=== PATIENT | female | born 1960 | race Asian ===

== ENCOUNTER 2021-01-23 07:53 | Outpatient (REF) | payer OTHER, SELFPAY ==
--- NOTE | ~2021-01-23 | XR_ITS ---
EXAMINATION: XR CHEST CLINICAL INFORMATION: Screening for TB COMPARISON: None TECHNIQUE: 2 views of the chest were obtained. FINDINGS: No significant abnormality is noted involving the heart, lungs, mediastinum, bony thorax or soft tissues. XR/XR chest 2V IMPRESSION: Unremarkable examination.
== END 2021-01-23 07:54 | disposition home or self-care (01) ==
LOC: HO.XRAY 07:53
PROVIDERS: PCP Nurse Practitioner Primary Care; Visit Provider Nurse Practitioner Primary Care
DX: Z11.1 Encounter for screening for respiratory tuberculosis (principal)
CPT/HCPCS: 71046

== ENCOUNTER 2022-04-17 15:10 | Outpatient (REF) | payer MEDICAID, OTHER, SELFPAY ==
--- NOTE | ~2022-04-17 | MM_ITS ---
EXAMINATION: MM SCREENING DIGITAL BREAST TOMOSYNTHESIS, BILATERAL CLINICAL INFORMATION: Screening. Asymptomatic. The lifetime risk of breast cancer based on the Tyrer-Cuzick Model is 7%. COMPARISON: Mammography: 12/26/2015, 10/06/2012, 09/03/2011 TECHNIQUE: Digital breast tomosynthesis is performed in both the craniocaudal and mediolateral oblique views along with computer-aided detection (CAD). Synthesized 2D images are generated from the tomosynthesis. FINDINGS: The breasts are heterogeneously dense, which may obscure small masses (ACR BI-RADS breast composition Category c). Parenchymal pattern is similar to prior studies. There is no developing density or architectural abnormality. No abnormal calcifications. No interval mass. The axilla and skin contours are unremarkable. No significant changes. MM/MM tomosynthesis screening BI IMPRESSION: No mammographic evidence of malignancy. ASSESSMENT: BI-RADS 1: Negative RECOMMENDATION: Routine annual mammography screening. This patient's information was entered into a reminder system with a target due date for their next mammogram.
== END 2022-04-17 15:11 | disposition home or self-care (01) ==
LOC: HO.MAMMO 15:10
PROVIDERS: PCP Nurse Practitioner Primary Care; Visit Provider Nurse Practitioner Primary Care
DX: Z12.31 Encounter for screening mammogram for malignant neoplasm of breast (principal)
CPT/HCPCS: 77063; 77067

== ENCOUNTER 2023-06-25 12:47 | Outpatient (AMB) | payer OTHER, SELFPAY ==
--- NOTE | 2023-06-25 12:51 | MHC.OFFVIS ---
Intake Vital Signs 06/25/23 12:54 Height 5 ft 5 in Weight 153 lb BMI 25.5 BP 151/75 H Blood Pressure Location Lt brachial Position Sitting Pulse 72 Intake Visit Reasons: Colonoscopy Screening Intake Note: Patient new consult for 1st pre colonoscopy screening. Patient denies any GI issues. Public Health Aides Teacher Required: No Accompanied by: Son Allergies No Known Allergies [No Known Allergies*] Allergy (Verified 06/25/23 12:51) Medication List - Last Reconciled 06/25/23 by Mary Lopez PA-C amlodipine 10 mg PO DAILY aspirin 81 mg PO DAILY atorvastatin 80 mg PO BEDTIME insulin glargine (Lantus U-100 Insulin) 20 units subcut DAILY insulin lispro 14 units subcut BID losartan 50 mg PO DAILY metformin ER 500 mg PO BID HPI HPI Comments History of Present Illness Details A 62 y/o female referred for index screening colonoscopy. She had a change in metformin- she feels well Bowels are normal Appetite good Has no nausea, vomiting, hematemesis, hematochezia fever chills Her son is present interprets No family history of GI cancers PFSH Surgical History History of appendectomy Family History Mother Diabetes Father Stroke Social History Household Members: Family Alcohol intake: never Patient Tobacco Use Status: Never used Tobacco Use of substances other than those prescribed or required for medical reasons: No Review of Systems Const All systems reviewed & are unremarkable except as noted in HPI and below Card Denies chest pain and Denies dyspnea Resp Denies dyspnea GI Denies abdominal pain, Denies hematochezia, Denies change in stool character, Denies nausea and Denies vomiting Physical Exam Vital Signs: Last Vital Signs Pulse 72 06/25/23 12:54 BP 151/75 H 06/25/23 12:54 BMI result Body Mass Index 25.5 Const General: cooperative, healthy appearing, comfortable and no acute distress Orientation/consciousness: patient oriented x3 Limitations: language barrier Eyes Sclerae: sclerae normal Resp Effort & Inspection: normal respiratory effort and able to speak in complete sentences Auscultation: clear to auscultation bilaterally, no rales, no rhonchi and no wheezes Cardio Rate: regular rate Rhythm: regular rhythm Heart sounds: S1 normal heart sound present and S2 normal heart sound present GI Palpation (GI): Soft to palpation and nontender Auscultation: normal bowel sounds Skin General skin exam: no rashes or lesions noted Neuro General: patient oriented x3 Extrem General: Yes full ROM Psych Appearance: grossly normal and well kempt Mental Status: mental status grossly normal Speech and movement: Normal speech and movement present Affect: normal affect Attitude: cooperative Thought process: Normal thought process present Thought content: Normal thought content present Insight: Good insight present (Psych) Judgement: Good judgement present (Psych) Assessment & Plan Assessment & Plan (1) Encounter for screening colonoscopy: Comment: Index screening colonoscopy Discussed procedure rare risks, need for escort due to anesthesia Code(s): Z12.11 - Encounter for screening for malignant neoplasm of colon Plan Screening Colon- index MG split Omit metformin carrie before- 1/2 dose insulin morning of procedure no DM medications Orders: Orders Colonoscopy - GI Use Only Today Z12.11 - Encounter for screening for malignant neoplasm of colon Medications: New bisacodyl (Dulcolax (bisacodyl)) Day before procedure, prep day Take 4 tablets by mouth upon awakening followed by large glass of water 20 mg (4 x 5 mg) PO ONCE 4 tabs 0RF colonoscopy prep 1 day Z12.11 - Encounter for screening for malignant neoplasm of colon polyethylene glycol 3350 (Miralax) Take as directed by mouth the day before your procedure. 238 grams PO ONCE PRN 238 grams 0RF laxative effect 1 day Patient Instructions: Very pleasant 62-year-old female referred for index screening colonoscopy no GI or general complaints Index Screening Colonoscopy MG split Omit metformin carrie before- 1/2 dose insulin morning of procedure no DM medications Enourage to call questions or concerns Coding Level of Care Code Tele New Pt Level 3 (74547) Diagnoses Encounter for screening colonoscopy Z12.11
[2023-06-25 12:54] VITALS: BP 151/75; PULSE 72; BMI 25.5
== END 2023-06-25 14:19 | disposition home or self-care (01) ==
PROVIDERS: PCP Nurse Practitioner Primary Care; Visit Provider Physician Assistant
DX: Z01.818 Encounter for other preprocedural examination (principal); Z12.11 Encounter for screening for malignant neoplasm of colon
CPT/HCPCS: 99203

== ENCOUNTER → 2023-06-25 12:47 | Outpatient (BNVA) | payer MEDICAID, OTHER, SELFPAY | PROVIDERS: PCP Nurse Practitioner Primary Care; Visit Provider Physician Assistant ==

== ENCOUNTER 2023-10-27 08:49 | Outpatient (REF) | payer OTHER, SELFPAY ==
[2023-10-27 12:29] LABS: Anion Gap 14 (12-20); Blood Urea Nitrogen 15 mg/dL (9-16); Calcium 10.3 mg/dL (8.4-10.2); Carbon Dioxide 27 mmol/L (22-29); Chloride 103 mmol/L (96-108); Cholesterol 171 mg/dL (<200); Estimated Glomerular Filt Rate > 60; Glucose Random 151 mg/dL (60-115); HDL Cholesterol 45 mg/dL (>40); LDL Cholesterol Calculated 100 mg/dL (<100); Potassium 4.6 mmol/L (3.3-5.1); Sodium 139 mmol/L (135-145); Triglycerides 130 mg/dL (<150)
[2023-10-27 12:41] LABS: Creatinine Urine 64.16 mg/dL; Microalbum/Creatinine Ratio Ur 23.3 ug/mg cr (<30)
== END 2023-10-27 08:50 | disposition home or self-care (01) ==
LOC: HO.HHCL 08:49
PROVIDERS: Visit Provider Nurse Practitioner Primary Care
DX: E11.69 Type 2 diabetes mellitus with other specified complication (principal); Z79.4 Long term (current) use of insulin
CPT/HCPCS: 36415; 80048; 80061; 82043; 82570

== ENCOUNTER 2025-05-23 10:38 | Outpatient (REF) | payer OTHER, SELFPAY ==
[2025-05-23 11:41] LABS: Hemoglobin A1C 221.3807 umol/L; Total Hemoglobin (HGBA1C) 3256.7208 umol/L
[2025-05-23 12:19] LABS: Microalbum/Creatinine Ratio Ur 29.1 ug/mg cr (<30)
--- OUTSIDE RECORDS SUMMARY | 2025-05-23 12:50 | XMS_ITS | Encounter Summary ---
Author Organization [employer] Address [address] [place] [address] Care Team Providers Care Therapist Speech Name Role Phone Padma Farah Primary Care Provider [phone] Encounter Details Date Type Department Care Team ([facility] st Contact Info) Description 05/23/2025 Orders Only [facility] [address] [place], [place] [phone] Padma Farah ANP [address], [place] [phone] Social History Tobacco Use Types Packs/Day Years Used Date Smoking Tobacco: Never Smokeless Tobacco: Never Alcohol Use Standard Drinks/Week Comments Not Currently 0 (1 standard drink = 0.6 oz pur e alcohol) Depression Answer Date Recorded Patient Health Questionnaire-9 Score 0 02/03/2024 Patient Health Questionnaire-9 Score 0 02/03/2024 Last PHQ-9: Questionnaire Data Not on file 0 02/03/2024 Housing Stability Answer Date Recorded What is your housing situation today? I have ryan wiggins 02/03/[address] you li ve. Do you have problems with any of the following? None of the above 02/03/2024 Food Insecurity Answer Date Recorded Within the past 12 months, y ou worried that your food would run out before you got money to buy more: Never True 02/03/2024 Within the past 12 months,th e food you bought just didn't last and you didn't have enough money to get more: Never True Utilities Answer Date Recorded In the past 12 months, has t he electric, gas, oil or water company threatened to shut off services in your home? No 02/03/2024 Depression Answer Date Recorded Patient Health Questionnaire-2 Score 0 02/03/2024 Comments Unknown Sex and Gender Information Value Date Recorded Sex Assigned at Female 07/15/2022 10:20 AM EDT Legal Sex Female 10:20 AM EDT Gender Identity Female 07/15/2022 10:20 AM EDT Sexual Orientation Straight 07/15/2022 10 :20 AM EDT documented as of this encounter Plan of Treatment Upcoming Encounters Date Type Department Care Team (Late st Contact Info) Description 06/07/2025 9:45 AM EDT Office Visit [facility] [address] [place] [address] Padma Farah ANP [address] [place] [address] documented as of this encounter Visit Diagnoses Not on filedocumented in this encounter Additional Health Concerns Assessment Noted Time PHQ-9 Depression Total Score: 0 02/03/20 24 2:33 PM EDT documented as of this encounter Care Teams Therapist Speech Relationship Specialty Start Date End Date Padma Farah ANP [address] [place] [phone] PCP - General Family Medicine 09/29/20 documented as of this encounter
--- OUTSIDE RECORDS SUMMARY | 2025-05-23 12:50 | XMS_ITS | Clinical Summary ---
Author Organization [employer] Address [address] [place] [address] [address] [place] [address] Care Team Providers Care Art Gilder Name Role Phone Gagan Padma RAYGOZA Primary Care Provider [phone] Allergies Active Allergy Reactions Criticality Noted Date Comments Lisinopril Cough Medium 03/27/2009 Medications omega-3, EPA + DHA, (fish oil) 1000 MG capsule Take 1 capsule by mouth with breakfast and with evening meal. 022 Active glucose blood (FREESTYLE LITE) test strip Test blood sugars twice a day 022 Active TRUEplus Lancets 33G miscIndications:T ype 2 diabetes mellitus with other specified complication, with long-term current use of insulin ([facility]) TEST BLOOD SUGAR TWICE DAILY 100 each 11 022 Active Continuous Blood Gluc Foundation Director (FreeStyle Jay Jay 2 [place]) deviceIndications :Type 2 diabetes mellitus with hyperlipidemia (CMS/HCC) (CMS/[facility]) 1 each 5 (five) times a day. 1 each 023 Active Continuous Blood Gluc Sensor (FreeStyle Jay Jay 2 Sensor) miscIndications:T ype 2 diabetes mellitus with hyperlipidemia (CMS/HCC) (CMS/[facility]) 1 each every 14 (fourteen) days. 6 each 3 023 Active insulin pen needle (UltiCare Short Pen [place]) 31G X 8 mm misc USE DIRECTED FOUR TIMES DAILY 100 each 11 024 Active amLODIPine (Norvasc) 10 MG tablet TAKE 1 TABLET BY MOUTH ONCE DAILY 90 tablet 3 024 Active insulin lispro (HumaLOG) 100 UNIT/ML injectionIndicati ons:Diabetic peripheral neuropathy associated with type 2 diabetes mellitus (CMS/HCC) INJECT 14 UNITS SUBCUTANEOUSLY TWICE DAILY WITH BREAKFAST AND WITH DINNER 15 mL 3 025 Active metFORMIN XR (Glucophage-XR) 500 MG 24 hr tabletIndications :Type 2 diabetes mellitus with hyperlipidemia (CMS/HCC) (CMS/HCC) TAKE 1 TABLET BY MOUTH TWICE DAILY WITH FOOD. DO NOT BREAK, CRUSH, DISSOLVE OR CHEW 180 tablet 025 Active Lantus SoloStar 100 UNIT/ML penIndications:Di abetic peripheral neuropathy associated with type 2 diabetes mellitus (CMS/HCC) INJECT 20 UNITS SUBCUTANEOUSLY EVERY DAY IN THE EVENING 15 mL 1 025 Active Aspirin Low Dose 81 MG EC tablet TAKE 1 TABLET BY MOUTH EVERY DAY 90 tablet 025 Active atorvastatin (Lipitor) 80 MG tablet TAKE 1 TABLET BY MOUTH EVERY DAY 90 tablet 025 Active losartan (Cozaar) 50 MG tablet TAKE 1 TABLET BY MOUTH EVERY DAY 90 tablet 025 Active atorvastatin (Lipitor) 80 MG tablet TAKE 1 TABLET BY MOUTH EVERY DAY 90 tablet 1 025 2024 Discontinued aspirin (Aspirin Low Dose) 81 MG EC tablet TAKE 1 TABLET BY MOUTH EVERY DAY 90 tablet 1 025 2024 Discontinued losartan (Cozaar) 50 MG tablet TAKE 1 TABLET BY MOUTH EVERY DAY 90 tablet 1 025 2024 Discontinued Active Problems Problem Noted Date Diagnosed Date Chronic gastritis 09/03/2022 Type 2 diabetes mellitus 04/14/2019 Premature atrial contraction 02/09/2019 Palpitations 01/04/2019 Diabetic peripheral neuropat hy associated with type 2 diabetes mellitus 05/07/2018 Dyslipidemia 08/23/2015 Hypertensive disorder 02/02/2015 Retroperitoneal lymphadenopathy 01/22/2015 Difficulty sleeping 12/06/2014 Encounters Date Type Department Care Team Description 05/23/2025 Results Follow-Up [facility] [address] [place] [address] Padma Farah ANP Hemoglobin A1c 05/23/2025 Orders Only [facility] [address] [place] [address] Padma Farah ANP 05/16/2025 Refill [facility] [address] [place] [address] Padma Farah ANP 04/22/2025 Telephone [facility] [address] [place] [address] Padma Farah ANP Med Refill 04/22/2025 Orders Only [facility] [address] [place] [address] Padma Farah ANP Diabetic peripheral neuropathy associated with type 2 diabetes mellitus ([facility]/HCC) (Primary Dx) 04/22/2025 Refill [facility] [address] [facility] [place] [facility] [place] [address] Padma Farah ANP Diabetic peripheral neuropathy associated with type 2 diabetes mellitus ([facility]/HCC) 02/22/2025 Refill [facility] [address] [facility] [place] [address] Padma Farah ANP Type 2 diabetes mellitus with hyperlipidemia ([facility]/HCC) ([facility]) from Last 3 Months Immunizations Immunization Administration Dates Next Due Hep B, adult 12/13/2015,08/23/2015,05/29/2015 Influenza injectable quadriv alent IIV4 with preservative 09/05/2017,08/15/2016,05/29/2015 Influenza injectable quadriv alent preservative free 07/03/2022,07/06/2020,08/03/2019,09/06 Influenza, IIV3, injectable 07/23/2011 Influenza, Split (incl. pasquale fied surface antigen) 06/29/2012 Pfizer Covid-19 Vaccine 12+ 08/31/2021,,12/12/2020 Pneumococcal Conjugate PCV 20 07/17/2022 Pneumococcal Polysaccharide PPSV23 11/27/2009 TD (adult), 2 Lf tetanus tox oid, preservative free, adsorbed 08/28/2009 Tdap 05/15/2022 Zoster, Recombinant 07/17/2022,05/15/2022 Family History Medical History Relation Name Comments Stroke Father Diabetes Mother Stroke Mother Relation Name Status Comments Father Mother Social History Tobacco Use Types Packs/Day Years Used Date Smoking Tobacco: Never Smokeless Tobacco: Never Tobacco Cessation:Counseling Given: Not Answered Alcohol Use Standard Drinks/Week Comments Not Currently [...] Orientation Straight 07/15/2022 10 :20 AM EDT Last Filed Vital Signs Vital Sign Reading Time Taken Comments Blood Pressure 120/74 02/03/2024 3:06 PM EDT Pulse 70 02/03/2024 2:29 PM EDT Temperature 36.2 C (97.2 F) 02/03/2024 2:29 PM EDT Respiratory Rate 20 02/03/2024 2:29 PM EDT Oxygen Saturation 95% 02/03/2024 2:29 PM EDT Inhaled Oxygen Concentration - - Weight 69.9 kg (154 lb) 02/03/2024 2:29 PM EDT Height 157.5 cm (5' 2 ) 02/03/2024 2:29 PM EDT Body Mass Index 28.17 02/03/2024 2:29 PM EDT Plan of Treatment Upcoming Encounters Date Type Department Care Team (Late st Contact Info) Description 06/07/2025 9:45 AM EDT Office Visit [facility] [address] [place] [address] Padma Farah ANP [address] [place], [place] [phone] Health Maintenance Due Date Last Done Comments CT Colonography 1960 Colonoscopy 1960 Colorectal Cancer Screening 1960 FIT DNA/Cologuard 1960 FIT 1960 FOBT 1960 HIV Screening 1960 Sigmoidoscopy 1960 Disability Screening 1960 Diabetes: Foot Exam 1970 Eye Exam 1970 Alcohol/Substance Use Screening 1972 Hepatitis C Screening 1978 RSV Patients and Patients Aged 60 years or older (1 - Risk 60-74 years 1-dose series) 2020 Mammogram 04/17/2024 04/17/2022 Lipid Panel 10/27/2024 10/27/2023, 02/15/2021 Depression Screening 02/02/2025 02/03/2024, 02/03/20 24 SDOH Screening 02/02/2025 02/03/2024 Tobacco Screening 02/02/2025 02/03/2024 COVID-19 Vaccine ( season) 2025 08/31/2021, 01/02/2021, 12/12/2020 Influenza Vaccine (#1) 2025 , 07/03/2022, 07/06/2020, Additional history exists Diabetes: Hemoglobin A1C 08/22/2025 025, 02/03/2024, 03/24/2023, Additional history exists Cervical Cancer Screening 04/26/2026 HPV/Cotest 04/26/2026 04/26/2021 Pap Smear 04/26/2026 04/26/2021 Diabetes: Urine Protein Screening 05/23/2026 05/23/2025, 10/27/2023, 02/15/2021 DTaP/Tdap/Td Vaccines (2 - Td or Tdap) 05/15/2032 05/15/2022, 08/28/2009 Hepatitis B Vaccines Completed 12/13/2015, 08/23/2015, 05/29/2015 Pneumococcal Vaccine: 50+ Years Completed 07/17/2022, 11/27/2009 Zoster Vaccines Completed 07/17/2022, 05/15/2022 HIB Vaccines Aged Out No longer eligi ble based on patient's age to complete this topic HPV Vaccines Aged Out No longer eligi ble based on patient's age to complete this topic Hepatitis A Vaccines Aged Out No long er eligible based on patient's age to complete this topic IPV Vaccines Aged Out No longer eligi ble based on patient's age to complete this topic Meningococcal B Vaccine Aged Out No l onger eligible based on patient's age to complete this topic Meningococcal Vaccine Aged Out No maya shiva eligible based on patient's age to complete this topic RSV under 20 months Aged Out No longe r eligible based on patient's age to complete this topic Rotavirus Vaccines Aged Out No longer eligible based on patient's age to complete this topic Procedures Procedure Name Priority Date/Time Associated Diagnosis Comments ALBUMIN, RANDOM URINE W/CREATININE Routine 05/23/2025 10:48 AM EDT Diabetic peripheral neuropathy associated with type 2 diabetes mellitus (CMS/HCC) HEMOGLOBIN A1C Routine 05/23/2025 10:48 AM EDT Diabetic peripheral neuropathy associated with type 2 diabetes mellitus (CMS/HCC) LIPID PANEL, STANDARD Routine 10/27/2023 8:53 AM EST MAMMOGRAM GENERIC Routine 04/17/2022 3:2 1 PM EDT HPV MRNA E6/E7 Routine 04/26/2021 11:20 AM EDT THINPREP PAP Routine 04/26/2021 11:20 AM EDT from Last 3 Months or Most Recently Relevant to Health Maintenance Results * (ABNORMAL) Albumin, Random Urine W/Creatinine (05/23/2025 10:48 AM EDT) Creatinine, Urine 164.81 mg/dL [facility] Microalbumin Urine 48.0 mg/L H [facility] Microalbum Creatinine Ratio Ur 29.1(H) <30 ug/mg cr [facility] Comment:Albumin/Creatinine R atio Reference Ranges: Normal: < 30 ug/mg creatinine Microalbuminuria: 30 - 300 ug/mg creatinineClinical Albuminuria: > 300 ug/mg creatinine Urine 05/23/2025 10:4 8 AM EDT 05/23/2025 11:38 AM EDT Padma Farah ANP LAB URINE ORDERABLES Final Resul t Performing Organization Address [facility] de Phone Number [facility] [address] [place] [phone] * (ABNORMAL) Hemoglobin A1c (05/23/2025 10:48 AM EDT) Hemoglobin A1c 8.4(H) <6.0 % [facility] Comment:Hemoglobin A1C Refer ence Range Adults: 4.8 - 6.0 % Non diabetic: < 6.0 % Goal: < 7.0 %Additional Action Suggested: > 8.0 %Note: Hemoglobin A1c results are invalid for patients with abnormal amounts of HbF. Blood transfusions may impact the HbA1c concentration in the patient sample. Estimated Average Glucose 194 mg/dL [facility] Comment:eAG = Estimated ave rage glucose which is %A1C expressed asaverage glucose, using the formula of the P8O-HgyqjelKqswxut Glucose study (ADAG), Diabetes Care, Vol.31,#8,Apr. 2007 Blood Venous blood specimen / Unknown 05/23/2025 10:48 AM EDT 05/23/2025 11:21 AM EDT us Padma Farah ANP LAB BLOOD ORDERABLES Final Resul t Performing Organization Address [facility] Co de Phone Number [facility] [address] [place] [phone] * (ABNORMAL) Lipid Panel, Standard (10/27/2023 8:53 AM EST) Triglycerides 130 <150 mg/dL [facility] Comment:Desirable Triglyceri de: less than 150 mg/dLBorderline High Triglyceride 150-199 mg/dLHigh Triglyceride: 200-499 mg/dLVery High Triglyceride: greater than or equal to 5OO mg/dL Cholesterol 171 <200 mg/dL [facility] Comment:Desirable Cholestero l: less than 200 mg/dLBorderline High Cholesterol: 200-239 mg/dLHigh Cholesterol: greater than 239 mg/dL LDL Cholesterol Calculated 100(H) <100 mg/dL [facility] Comment:Desirable LDL: less than 100 mg/dLNear Optimal/Above Optimal LDL: 110- 129 mg/dLBorderline High LDL: 130-159 mg/dLHigh LDL: 160-189 mg/dLVery High LDL: greater than or equal to 190 mg/dL HDL Cholesterol 45 >40 mg/dL [facility] Comment:Desirable HDL: great er than 40 mg/dL Note: This HDL assay may give artificially low results in patients with liver disease. 10/27/2023 8:53 AM EST 10/27/2023 11:34 AM EST us Padma Farah ANP LAB BLOOD ORDERABLES Final Resul t Performing Organization Address City/State/[facility] Co de Phone Number [facility] [address] [place] [phone] * Mammography Report 1 (04/17/2022 3:21 PM EDT) Anatomical Region Laterality Modality Breast Bilateral Mammography 04/17/2022 3:21 PM EDT Narrative 04/18/2022 4:32 PM EDT Refer to the Notes tab for result details [facility] Procedure: Mammography Report 1 Procedure Note Provider, MD Wade - 12/08/2022 Refer to the Notes tab for result details [facility] Procedure: Mammography Report 1 us Padma Farah ANP IMG BI PROCEDURES Final Result * THINPREP PAP (04/26/2021 11:20 AM EDT) Clinical Information: None given [facility] COMMENT SEE COMMENT [facility] Comment: EXPLANATORY NOTE: The Pap is a screening test for cervical cancer. It is not a diagnostic test and is subject to false negative and false positive results. It is most reliable when a satisfactory sample, regularly obtained, is submitted with relevant clinical findings and history, and when the Pap result is evaluated along with historic and current clinical information. Screener Operator : SEE COMMENT [facility] Comment: GSG, CT(ASCP) CT screening location: [place] [address] Interpretation/R esult: Negative for intraepithelial lesion or malignancy. [facility] LMP: NONE [facility]IVEN [facility] Prev. BX: NONE [facility]IVEN [facility] Prev. PAP: NONE GIVEN [facility] SOURCE: None given [facility] Statement Of Adequacy: SEE COMMENT [facility] Comment: Satisfactory for evaluation. Endocervical/transformation zone component present. 04/26/2021 11:2 0 AM EDT Mindy SALGADO LAB PATHOLOGY ORDERABLES Final Result Performing Organization Address [facility] de Phone Number [facility]ly [facility] [address] * HPV mRNA E6/E7 (04/26/2021 11:20 AM EDT) HPV nRNA E6/E7 Not Detected Not Detected [facility] Comment: Methodology: Beam Saw Operator-Mediated Amplification This assay detects E6/E7 viral messenger RNA (mRNA) from 14 high-risk HPV types (16,18,31,33,35,39,45,51,52,56,58,59,66,68). The analytical performance characteristics of this assay have been determined by [employer]. The modifications have not been cleared or approved by the FDA. This assay has been validated pursuant to the CLIA regulations and is used for clinical purposes. For additional information, please refer to http://education.[employer]/faq/WMP028g1 (This link if provided for information/ educational purposes only.) 04/26/2021 11:2 0 AM EDT Mindy SALGADO LAB BLOOD ORDERABLES Anjana l Result Performing Organization Address [facility] Co de Phone Number [facility] [address] from Last 3 Months or Most Recently Relevant to Health Maintenance Insurance [place], [place] HSN PARTIAL [facility] Care Teams Art Gilder Relationship Specialty Start Date End Date Padma Farah ANP [address] [place] [address] PCP - General Family Medicine 09/29/20
--- OUTSIDE RECORDS SUMMARY | 2025-05-23 12:50 | XMS_ITS | Encounter Summary ---
Author Organization [employer] Address [address] [facility] [address] [place] [address] Care Team Providers Care Head Of Transport Logistics Name Role Phone Padma Farah Primary Care Provider [phone] Encounter Details Date Type Department Care Team ([facility] Contact Info) Description 05/23/2025 Results Follow-Up [facility] [address] [place] [address] Padma Farah ANP [address] [place] [address] Hemoglobin A1c Social History Tobacco Use Types Packs/Day Years [...] AM EDT documented as of this encounter Miscellaneous Notes * Result Encounter Note - JARET Escudero - 05/23/2025 11:57 AM EDT Hi - please let Mrs. Agrawal know that A1c remains above goal, if she agrees I would like her to see our clinical pharmacist for assistance getting this down. Thanks. documented in this encounter Plan of Treatment Upcoming Encounters Date Type Department Care Team (Late st Contact Info) Description 06/07/2025 9:45 AM EDT Office Visit [facility] [address] [place] [address] Padma Farah ANP [address] [place] [address] documented as of this encounter Visit Diagnoses Not on filedocumented in this encounter Additional Health Concerns Assessment Noted Time PHQ-9 Depression Total Score: 0 02/03/20 24 2:33 PM EDT documented as of this encounter Care Teams Head Of Transport Logistics Relationship Specialty Start Date End Date Padma Farah ANP [address] [place] [address] PCP - General Family Medicine 09/29/20 documented as of this encounter
[2025-05-23 14:30] LABS: Anion Gap 14 (12-20); Blood Urea Nitrogen 16 mg/dL (9-16); Calcium 9.5 mg/dL (8.4-10.2); Carbon Dioxide 26 mmol/L (22-29); Chloride 105 mmol/L (96-108); Estimated Glomerular Filt Rate > 60; Potassium 4.0 mmol/L (3.3-5.1); Sodium 141 mmol/L (135-145)
== END 2025-05-23 10:39 | disposition home or self-care (01) ==
LOC: HO.HHCL 10:38
PROVIDERS: PCP Nurse Practitioner Primary Care; Visit Provider Nurse Practitioner Primary Care
DX: E11.42 Type 2 diabetes mellitus with diabetic polyneuropathy (principal)
CPT/HCPCS: 36415; 80048; 82043; 82570; 83036

== ENCOUNTER 2025-08-15 08:24 | Outpatient (REF) | payer OTHER, SELFPAY ==
--- OUTSIDE RECORDS SUMMARY | 2025-08-15 08:39 | XMS_ITS | Encounter Summary ---
Author Organization [employer] Address [address] [facility] [address] [place] [address] Care Team Providers Care Compacting Machine Operator/Tender Name Role Phone Padma Farah Primary Care Provider [phone] Encounter Details Date Type Department Care Team ([facility] st Contact Info) Description 08/08/2025 Orders Only [facility] [address] [place] [address] Padma Farah ANP [address] [place] [address] Social History Tobacco Use Types Packs/Day Years Used Date Smoking Tobacco: Never Smokeless Tobacco: Never Alcohol Use Standard Drinks/Week Comments Not Currently 0 (1 standard drink = 0.6 oz pur e alcohol) Depression Answer Date Recorded Patient Health Questionnaire-9 Score 3 06/07/2025 Patient Health Questionnaire-9 Score 3 06/07/2025 Last PHQ-9: Questionnaire Data Not on file 0 06/07/2025 Housing Stability Answer Date Recorded What is your housing situation today? I have ryan wiggins 06/07/[address] you li ve. Do you have problems with any of the following? None of the above 06/07/2025 Food Insecurity Answer Date Recorded Within the past 12 months, y ou worried that your food would run out before you got money to buy more: Never True 06/07/2025 Within the past 12 months,th e food you bought just didn't last and you didn't have enough money to get more: Never True Transportation Answer Date Recorded In the past 12 months, has l ack of transportation kept you from medical appts, meetings, work or from getting things needed for daily living? No 06/07/2025 Utilities Answer Date Recorded In the past 12 months, has t he electric, gas, oil or water company threatened to shut off services in your home? No 06/07/2025 Depression Answer Date Recorded Patient Health Questionnaire-2 Score 1 06/07/2025 Internet Access Answer Date Recorded Internet Access Q1 Yes 06/07/2025 Internet Access Q2 Not on file 06/07/2025 Comments Unknown Sex and Gender Information Value Date Recorded Sex Assigned at Female 07/15/2022 10:20 AM EDT Legal Sex Female 10:20 AM EDT Gender Identity Female 07/15/2022 10:20 AM EDT Sexual Orientation Straight 07/15/2022 10 :20 AM EDT documented as of this encounter Plan of Treatment Upcoming Encounters Date Type Department Care Team (Late st Contact Info) Description 09/01/2025 9:00 AM EST Office Visit [facility] [address] [place] [phone] Padma Farah ANP [address] [place] [address] documented as of this encounter Goals Goal Patient Goal Type Associated Problems Recent Progress Patient-Stated? Author Help patients manage their type 2 diabetes Care Plan Help patients manage their type 2 diabetes No Padma Farah ANP Weekly blood pressure task Care Plan Weekly blood pressure task No Padma Farah ANP Help patients manage their type 2 diabetes Care Plan Help patients manage their type 2 diabetes No Padma Farah ANP Patient has chronic kidney disease Care Plan Patient has chronic kidney disease No Padma Farah ANP Help patients manage their type 2 diabetes Care Plan Help patients manage their type 2 diabetes No Padma Farah ANP Patient has diabetic neuropathy Care Plan Patient has diabetic neuropathy No Padma Farah ANP Weekly blood pressure task Care Plan Weekly blood pressure task No Padma Farah ANP Weekly blood pressure task Care Plan Weekly blood pressure task No Padma Farah ANP Patient has chronic kidney disease Care Plan Patient has chronic kidney disease No Padma Farah ANP Patient has chronic kidney disease Care Plan Patient has chronic kidney disease No Padma Farah ANP Patient has diabetic neuropathy Care Plan Patient has diabetic neuropathy No Padma Farah ANP Patient has diabetic neuropathy Care Plan Patient has diabetic neuropathy No Padma Farah ANP documented as of this encounter Visit Diagnoses Not on filedocumented in this encounter Additional Health Concerns Active Problems Noted Date Diagnosed Date Help patients manage their type 2 diabetes 08/08 Weekly blood pressure task 08/08/2025 Help patients manage their type 2 diabetes 08/08 Patient has chronic kidney disease 08/08/2025 Help patients manage their type 2 diabetes 08/08 Patient has diabetic neuropathy 08/08/2025 Weekly blood pressure task 08/08/2025 Weekly blood pressure task 08/08/2025 Patient has chronic kidney disease 08/08/2025 Patient has chronic kidney disease 08/08/2025 Patient has diabetic neuropathy 08/08/2025 Patient has diabetic neuropathy 08/08/2025 Assessment Noted Time PHQ-9 Depression Total Score: 3 06/07/20 25 9:57 AM EDT documented as of this encounter Care Teams Compacting Machine Operator/Tender Relationship Specialty Start Date End Date Padma Farah ANP [address] [place] [id number] PCP - General Family Medicine 09/29/20 documented as of this encounter
--- OUTSIDE RECORDS SUMMARY | 2025-08-15 08:39 | XMS_ITS | Encounter Summary ---
Author Organization [employer] Address [address] [facility] 7[address] [place] [address] Care Team Providers Care Technical Illustrator Name Role Phone Padma Farah Primary Care Provider [phone] Reason for Visit * Reason Comments Med Refill Encounter Details Date Type Department Care Team ([facility] st Contact Info) Description 06/13/2025 Refill [facility] [address] [place], [place] [phone] Belia Vazquez MD [address] [place], [place] [phone] Type 2 diabetes mellitus with hyperlipidemia (CMS/HCC) ([facility]/HCC) Social History Tobacco Use Types Packs/Day Years [...] Description 09/01/2025 9:00 AM EST Office Visit [facility] [address] [place] [address] Padma Farah ANP [address] [place] [address] documented as of this encounter Visit Diagnoses Diagnosis Type 2 diabetes mellitus with hyperlipidemia (HCC) documented in this encounter Additional Health Concerns Assessment Noted Time PHQ-9 Depression Total Score: 3 06/07/20 25 9:57 AM EDT documented as of this encounter Care Teams Technical Illustrator Relationship Specialty Start Date End Date Padma Farah ANP [address] [place] [address] PCP - General Family Medicine 09/29/20 documented as of this encounter
--- OUTSIDE RECORDS SUMMARY | 2025-08-15 08:39 | XMS_ITS | Encounter Summary ---
Author Organization [employer] Address [address] [facility] [address] [place] [address] Care Team Providers Care Telemetry Monitor Name Role Phone Padma Farah Primary Care Provider [phone] Encounter Details Date Type Department Care Team ([facility] st Contact Info) Description 05/23/2025 Orders Only [facility] [address] [place] [address] Padma Farah ANP [address] [place] [address] Social History Tobacco Use Types Packs/Day Years [...] Description 09/01/2025 9:00 AM EST Office Visit [facility] [address] [place] [address] Padma Farah ANP [address] [place] [address] documented as of this encounter Visit Diagnoses Not on filedocumented in this encounter Additional Health Concerns Assessment Noted Time PHQ-9 Depression Total Score: 0 02/03/20 24 2:33 PM EDT documented as of this encounter Care Teams Telemetry Monitor Relationship Specialty Start Date End Date Padma Farah ANP [address] [place] [address] PCP - General Family Medicine 09/29/20 documented as of this encounter
--- OUTSIDE RECORDS SUMMARY | 2025-08-15 08:39 | XMS_ITS | Clinical Summary ---
Author Organization [email or web address] Address [address] [place] [address] Care Team Providers Care Foreign Language Interpreter Name Role Phone Padma Farah Primary Care Provider [phone] Allergies Active Allergy Reactions Criticality Noted Date Comments Lisinopril Cough Medium 03/27/2009 Medications omega-3, EPA + DHA, (fish oil) 1000 MG capsule Take 1 capsule by mouth with breakfast and with evening meal. 06/12/20 22 Active glucose blood (FREESTYLE LITE) test strip Test blood sugars twice a day 03/14/20 22 Active TRUEplus Lancets 33G miscIndications:Ty pe 2 diabetes mellitus with other specified complication, with long-term current use of insulin (HCC) TEST BLOOD SUGAR TWICE DAILY 100 each 11 09/04/20 22 Active Lantus SoloStar 100 UNIT/ML penIndications:Galilea betic peripheral neuropathy associated with type 2 diabetes mellitus (HCC) INJECT 20 UNITS SUBCUTANEOUSLY EVERY DAY IN THE EVENING 15 mL 1 04/22/20 25 Active Aspirin Low Dose 81 MG EC tablet TAKE 1 TABLET BY MOUTH EVERY DAY 90 tablet 05/17/20 25 Active atorvastatin (Lipitor) 80 MG tablet TAKE 1 TABLET BY MOUTH EVERY DAY 90 tablet 05/17/20 25 Active losartan (Cozaar) 50 MG tablet TAKE 1 TABLET BY MOUTH EVERY DAY 90 tablet 05/17/20 25 Active metFORMIN XR (Glucophage-XR) 500 MG 24 hr tabletIndications: Type 2 diabetes mellitus with hyperlipidemia (HCC) TAKE 1 TABLET BY MOUTH TWICE DAILY WITH FOOD DO NOT BREAK, CRUSH, DISSOLVE OR CHEW 180 tablet 3 06/07/20 25 Active insulin lispro (HumaLOG) 100 UNIT/ML injectionIndicatio ns:Diabetic peripheral neuropathy associated with type 2 diabetes mellitus (HCC) INJECT 18 UNITS SUBCUTANEOUSLY TWICE DAILY WITH BREAKFAST AND WITH DINNER 15 mL 3 06/07/20 Active ezetimibe (Zetia) 10 MG tabletIndications: Dyslipidemia Take 1 tablet (10 mg) by mouth Once per day. 90 tablet 1 06/07/20 Active Continuous Glucose Orthotic/Prosthetic Practitioner (Dexcom G7 Orthotic/Prosthetic Practitioner) deviceIndications: Diabetic peripheral neuropathy associated with type 2 diabetes mellitus (HCC),Type 2 diabetes mellitus with hyperlipidemia (HCC) 1 each Once per day. 1 each 06/07/20 Active insulin pen needle (Easy Touch Pen [place]) 31G X 8 mm misc USE DIRECTED FOUR TIMES DAILY 100 each 11 06/14/20 Active amLODIPine (Norvasc) 10 MG tablet TAKE 1 TABLET BY MOUTH EVERY DAY 90 tablet 3 06/14/20 Active Active Problems Problem Noted Date Diagnosed Date Atherosclerosis of arteries 06/07/2025 Overview (06/07/2025): 03/02/25 Echo: EF 65.8%, no wall motion abn, diastolic dysfunction grade I, mild concentric LVH, sclerocalcified AV, trivial MR/KY/TR Carotid US: R: 3x13mm mixed plaques at R bulb to pICA. approx 40% stenosis r bulb, 24% stenosis R pICA. Normal spectral waveform L: 2x15mm mixed plaques at L bulb to pICA, 2.5mm calcified plaque at L pECA, approx 29% stenosis at L bulb,, approx 28% stenosis at L pICA. Normal spectral waveform On ASA, max statin, added Zetia 06/07/25 Vaginal atrophy 06/07/2025 Overview (06/07/2025): on pelvic 03/02/25, pt denies sx, reviewed if any dryness, itching, burning, abn discharge, let us know Lung nodule seen on imaging study 06/07/2025 Overview (06/07/2025): never smoker, subpleural nodule KIMBERLEY 0.4cm, probably benign 03/02/25 ([place]) Polyp of transverse colon 06/07/2025 Overview (06/07/2025): c-scope [place] 03/02/25, referred to GI 06/07/25 Polyp of ascending colon 06/07/2025 Overview (06/07/2025): c-scope [place] 03/02/25, referred to GI 06/07/25 Osteopenia 06/07/2025 Overview (06/07/2025): optimize dietary Ca and Vit D intake, add PTH and Vit D to labs Mild concentric left ventricular hypertrophy (LV H) 06/07/2025 Overview (06/07/2025): on echo 03/02/25 referraed to cards 06/07/25 Thyroid nodule greater than or equal to 1.5 cm in diameter incidentally noted on imaging study 06/07/2025 Overview (06/07/2025): cystic nodule 20.8mm on outside thyroid US done for screening ([facility] in [facility]), colloidal cysts < 5.4 mm, 3.6mm isoechoic nodule R lobe; rec repeat 6 mo Chronic gastritis 09/03/2022 Overview (06/07/2025): Atrophic gastritis on EGD 03/02/25 - referred to GI Consider PPI if not added at GI visit Premature atrial contraction 02/09/2019 Palpitations 01/04/2019 Diabetic peripheral neuropat hy associated with type 2 diabetes mellitus 05/07/2018 Type 2 diabetes mellitus with hyperlipidemia 05/2015 Hypertensive disorder 02/02/2015 Retroperitoneal lymphadenopathy 01/22/2015 Difficulty sleeping 12/06/2014 Encounters Date Type Department Care Team Description 08/08/2025 Orders Only [facility] [address] [facility] [facility] [address] [place] [phone] Padma Farah ANP 06/15/2025 Orders Only [facility] [address] [place] [address] Yasmani Peña MD Type 2 diabetes mellitus with hyperlipidemia (HCC) (Primary Dx) 06/13/2025 Refill [facility] [address] [place], [place] [phone] Belia Vazquez MD Type 2 diabetes mellitus with hyperlipidemia (CMS/HCC) (CMS/HCC) 06/13/[address] [address] Padma Farah ANP 06/08/[address] [address] Padma Farah ANP imaging orders 06/07/2025 9:45 AM EDT Office Visit [address] [address] Padma Farah ANP Diabetic peripheral neuropathy associated with type 2 diabetes mellitus (CMS/HCC) (Primary Dx); Dyslipidemia; Type 2 diabetes mellitus with hyperlipidemia (CMS/HCC) (CMS/HCC); Osteopenia, unspecified location; Polyp of transverse colon, unspecified type; Polyp of ascending colon, unspecified type; Lung nodule seen on imaging study; Encounter for immunization; Thyroid nodule greater than or equal to 1.5 cm in diameter incidentally noted on imaging study; Mild concentric left ventricular hypertrophy (LVH); Calcification of aortic valve; Atherosclerosis of arteries; Atrophic gastritis without hemorrhage; Vaginal atrophy; Dizziness; Chronic gastritis without bleeding, unspecified gastritis type 06/07/2025 Results Follow-Up [address] [address] Padma Farah ANP BD DEXA Axial 06/07/[address] [address] Nasra Handley, Janneth 06/07/2025 Travel 06/06/2025 Travel 06/06/[address] [address] Padma Farah ANP chart prep 05/23/2025 Results Follow-Up [address] [address] Padma Farah ANP Hemoglobin A1c, Albumin, Random Urine W/Creatinine 05/23/2025 Orders Only [address] [address] Padma Farah ANP 05/16/[address] [address] Padma Farah ANP from Last 3 Months Immunizations Immunization Administration Dates Next Due Hep B, adult 12/13/2015,08/23/2015,05/29/2015 Influenza injectable quadriv alent IIV4 with preservative 09/05/2017,08/15/2016,05/29/2015 Influenza injectable quadriv alent preservative free 07/03/2022,07/06/2020,08/03/2019,09/06 Influenza, IIV3, injectable 07/23/2011 Influenza, Split (incl. pasquale fied surface antigen) 06/29/2012 Influenza, seasonal, injecta ble, preservative free 06/07/2025,07/08/2024 Pfizer Covid-19 Vaccine 12+ 08/31/2021,,12/12/2020 Pneumococcal Conjugate [...] Never Smokeless Tobacco: Never Tobacco Cessation:Counseling Given: No Alcohol Use Standard Drinks/Week Comments Not Currently [...] Sign Reading Time Taken Comments Blood Pressure 120/78 06/07/2025 9:55 AM EDT Pulse 76 06/07/2025 9:55 AM EDT Temperature 36.1 C (97 F) 06/07/2025 9:55 AM EDT Respiratory Rate 20 06/07/2025 9:55 AM EDT Oxygen Saturation 95% 02/03/2024 2:29 PM EDT Inhaled Oxygen Concentration - - Weight 68.5 kg (151 lb) 06/07/2025 9:55 AM EDT Height 157.5 cm (5' 2 ) 06/07/2025 9:55 AM EDT Body Mass Index 27.62 06/07/2025 9:55 AM EDT Plan of Treatment Upcoming Encounters Date Type Department Care Team (Late st Contact Info) Description 09/01/2025 9:00 AM EST Office Visit [facility] [address] [place] [address] Padma Farah ANP [address] [place] [address] Health Maintenance Due Date Last Done Comments CT Colonography 1960 FIT DNA/Cologuard 1960 FIT 1960 FOBT 1960 HIV Screening 1960 Sigmoidoscopy 1960 Diabetes: Foot Exam 1970 RSV Patients and Patients Aged 60 years or older (1 - Risk 50-74 years 1-dose series) 2010 COVID-19 Vaccine ( season) 2025 08/31/2021, 01/02/2021, 12/12/2020 Diabetes: Hemoglobin A1C 08/22/2025 025, 02/03/2024, 03/24/2023, Additional history exists Lipid Panel 03/02/2026 03/02/2025, 10/16, 02/15/2021 Diabetes: Urine Protein Screening 05/23/2026 05/23/2025, 10/27/2023, 02/15/2021 Alcohol/Substance Use Screening 06/07/2026 06/07/2025 Depression Screening 06/07/2026 06/07/2025, 06/07/20 25 Disability Screening 06/07/2026 06/07/2025 SDOH Screening 06/07/2026 06/07/2025 Tobacco Screening 06/07/2026 06/07/2025 Eye Exam 03/02/2027 03/02/2025 Mammogram 03/02/2027 03/02/2025, 04/17/2022 Cervical Cancer Screening 03/02/2030 HPV/Cotest 03/02/2030 03/02/2025, 04/26/2021 Pap Smear 03/02/2030 03/02/2025, 04/26/2021 DTaP/Tdap/Td Vaccines (2 - Td or Tdap) 05/15/2032 05/15/2022, 08/28/2009 Colonoscopy 03/02/2035 03/02/2025 Colorectal Cancer Screening 03/02/2035 Hepatitis B Vaccines Completed 12/13/2015, 08/23/2015, 05/29/2015 Pneumococcal Vaccine: 50+ Years Completed 07/17/2022, 11/27/2009 Zoster Vaccines Completed 07/17/2022, 05/15/2022 Hepatitis C Screening Completed 03/02/2025 Influenza Vaccine Completed 06/07/2025, , 07/03/2022, Additional history exists HIB Vaccines Aged Out No longer eligi [...] on patient's age to complete this topic Goals Goal Patient Goal Type Associated Problems [...] has diabetic neuropathy No Padma Farah ANP Procedures Procedure Name Priority Date/Time Associated Diagnosis Comments POCT GLUCOSE Routine 06/07/2025 9:56 AM EDT Type 2 diabetes mellitus with hyperlipidemia (CMS/HCC) ([facility]) BASIC METABOLIC PANEL Routine 05/23/2025 10:48 AM EDT Diabetic peripheral neuropathy associated with type 2 diabetes mellitus ([facility]/HCC) ALBUMIN, RANDOM URINE W/CREATININE Routine 05/23/2025 10:48 AM EDT Diabetic peripheral neuropathy associated with type 2 diabetes mellitus ([facility]) HEMOGLOBIN A1C Routine 05/23/2025 10:48 AM EDT Diabetic peripheral neuropathy associated with type 2 diabetes mellitus (CMS/HCC) HEPATITIS C AB W/REFL TO HCV RNA, QN, PCR Routine 03/02/2025 COLONOSCOPY Routine 03/02/2025 HM PAP/HPV Routine 03/02/2025 HM MAMMOGRAPHY Routine 03/02/2025 LIPID PANEL, STANDARD Routine 10/27/2023 8:53 AM EST from Last 3 Months or Most Recently Relevant to Health Maintenance Results * POCT Glucose (06/07/2025 9:56 AM EDT) Glucose Blood, POC 164 60 - 200 mg/dL QC Media Lot # [id number] Lot# Expiration Date [id number] Blood Capillary blood specimen / Unknown 06/07/2025 9:56 AM EDT us Padma RAYGOZA POINT OF CARE TEST ENTER/EDIT OR DERABLES Final Result * (ABNORMAL) Albumin, Random Urine W/Creatinine (05/23/2025 10:48 AM EDT) Creatinine, Urine 164.81 mg/dL [facility] Microalbumin Urine 48.0 mg/L H [facility] Microalbum Creatinine Ratio Ur 29.1(H) <30 ug/mg cr [facility] Comment:Albumin/Creatinine R atio Reference Ranges: Normal: < 30 ug/mg creatinine Microalbuminuria: 30 - 300 ug/mg creatinineClinical Albuminuria: > 300 ug/mg creatinine Urine 05/23/2025 10:4 8 AM EDT 05/23/2025 11:38 AM EDT us Padma RAYGOZA LAB URINE ORDERABLES Final Resul t [facility] [address] [place] [address] [phone] * (ABNORMAL) Hemoglobin A1c (05/23/2025 10:48 AM EDT) Hemoglobin A1c 8.4(H) <6.0 % [facility] Comment:Hemoglobin A1C Refer ence Range Adults: 4.8 - 6.0 % Non diabetic: < 6.0 % Goal: < 7.0 %Additional Action Suggested: > 8.0 %Note: Hemoglobin A1c results are invalid for patients with abnormal amounts of HbF. Blood transfusions may impact the HbA1c concentration in the patient sample. Estimated Average Glucose 194 mg/dL [facility] Comment:eAG = Estimated ave rage glucose which is %A1C expressed asaverage glucose, using the formula of the X0S-LvqmnkoAdjjnob Glucose study (ADAG), Diabetes Care, Vol.31,#8,Apr. 2007 Blood Venous blood specimen / Unknown 05/23/2025 10:48 AM EDT 05/23/2025 11:[address] [facility] LAB BLOOD ORDERABLES Final Resul t [facility] [address] [place] [address] [phone] * (ABNORMAL) Basic Metabolic Panel (05/23/2025 10:48 AM EDT) Sodium 141 135 - 145 mmol/L [facility] Potassium 4.0 3.3 - 5.1 mmol/L [facility] Chloride 105 96 - 108 mmol/L [facility] Carbon Dioxide 26 22 - 29 mmol/L [facility] Anion Gap 14 12 - 20 [facility] Urea Nitrogen (BUN) 16 9 - 16 mg/dL [facility] Creatinine, Serum 0.77 0.5 - 1.4 mg/dL [facility] Estimated Glomerular Filt Rate >60 [facility] Comment:Chronic Kidney Disea se: Estimated GFR < 60 mL/min/[id number] Kidney Disease: Estimated GFR < 15 mL/min/1.73m2 Glucose 183(H) 60 - 115 mg/dL [facility] Calcium 9.5 8.4 - 10.2 mg/dL [facility] Blood Venous blood specimen / Unknown 05/23/2025 10:48 AM EDT 05/23/2025 1:56 PM EDT Padma RAYGOZA LAB BLOOD ORDERABLES Final Resul t [facility] [address] [place] [phone] * Hepatitis C Antibody with Reflex to HCV, RNA, Quantitative, Real-Time PCR (03/02/2025) Pathologist [facility] Hepatitis C Antibody Nonreactive Borderline, Nonreactive, Inconclusive, Specimen unsatisfactory for evaluation Blood Venous blood specimen / Unknown Result [facility] Keanu VELASCO LAB BLOOD ORDERABLES Anjana l Result * PAP/HPV (03/02/2025) Pathologist [facility] Pap Smear 1. NILM 1. NILM HPV Not Detected Undetected, Indeterminat e, Quantitative , Not Detected Result [facility] Keanu VELASCO HEALTH MAINTENANCE Edited Result - Final * Mammography (03/02/2025) Pathologist [facility] Mammogram Normal Normal, Abnormal, BIRADS 1 , BIRADS 2 Anatomical Region Laterality Modality Other Result [facility] Provider HEALTH MAINTENANCE Final Result * (ABNORMAL) Colonoscopy (03/02/2025) Anatomical Region Laterality Modality Endoscopy Narrative 03/02/2025 03/02/25 [place] Colonoscopy: multiple polyps left in place: 6mm (transverse), 7mm (ascending), 10mm (transverse), Removed: tubular adenoma w/ low grade dysplasia and hyperplastic polyps Result [facility] Historical Provider ENDOSCOPY PROCEDURE ORDER BENJY Final Result * (ABNORMAL) Lipid Panel, Standard (10/27/2023 8:53 AM EST) Triglycerides 130 <150 mg/dL [facility] Comment:Desirable Triglyceri de: less than 150 mg/dLBorderline High Triglyceride 150-199 mg/dLHigh Triglyceride: 200-499 mg/dLVery High Triglyceride: greater than or equal to 5OO mg/dL Cholesterol 171 <200 mg/dL [facility] Comment:Desirable Cholestero l: less than 200 mg/dLBorderline High Cholesterol: 200-239 mg/dLHigh Cholesterol: greater than 239 mg/dL LDL Cholesterol Calculated 100(H) <100 mg/dL [facility] Comment:Desirable LDL: less than 100 mg/dLNear Optimal/Above Optimal LDL: 110- 129 mg/dLBorderline High LDL: 130-159 mg/dLHigh LDL: 160-189 mg/dLVery High LDL: greater than or equal to 190 mg/dL HDL Cholesterol 45 >40 mg/dL [facility] Comment:Desirable HDL: great er than 40 mg/dL Note: This HDL assay may give artificially low results in patients with liver disease. 10/27/2023 8:53 AM EST 10/27/2023 11:34 AM EST [facility] LAB BLOOD ORDERABLES Final Resul t [facility] [address] [place] [phone] from Last 3 Months or Most Recently Relevant to Health Maintenance Additional Health Concerns Active Problems Noted Date [...] neuropathy 08/08/2025 Patient has diabetic neuropathy 08/08/2025 Insurance [facility] Care Teams Foreign Language Interpreter Relationship Specialty Start Date End Date Padma Farah ANP [address] [place] [address] PCP - General Family Medicine 09/29/20
[2025-08-15 12:01] LABS: Parathyroid Hormone Intact 29.3 pg/mL (8.7-77.1)
== END 2025-08-15 08:25 | disposition home or self-care (01) ==
LOC: HO.HHCL 08:24
PROVIDERS: PCP Nurse Practitioner Primary Care; Visit Provider Nurse Practitioner Primary Care
DX: E04.1 Nontoxic single thyroid nodule (principal); M85.80 Other specified disorders of bone density and structure, unspecified site
CPT/HCPCS: 36415; 82306; 83970; 84443